=== PATIENT | female | born 1980 | race African-American/Black ===

== ENCOUNTER 2019-12-04 18:25 | Emergency (ER) | payer OTHER ==
[2019-12-04 18:43] VITALS: BMI 33.0
[2019-12-04] MEDS ORDERED: IBUPROFEN 600 MG TABLET (FP) PO ONE ×2 (19:25→19:26)
--- NOTE | 2019-12-04 19:28 | PDOC ---
Documentation entered by Paty Crespo SCRIBE, acting as scribe for Cherrie Hernandes MD. Cherrie Hernandes MD: This documentation has been prepared by the Zak tran Nirvannie, SCRIBE, under my direction and personally reviewed by me in its entirety. I confirm that the documentation accurately reflects all work, treatment, procedures, and medical decision making performed by me. History of Present Illness - General Chief Complaint: Respiratory Stated Complaint: COUGH History Source: Patient Exam Limitations: No Limitations - History of Present Illness Initial Comments: 12/04/19 19:32 HPI: The patient is a 39 year old female, with no significant past medical history, who presents to the emergency department with 1.5 days subjective fevers, chills , congestion, headache, diffuse body aches, and cough. As per patient, her symptoms onset last night thus, was evaluated by her PCP earlier today and diagnosed with the flu and prescribed Tamiflu. Patient notes elevated blood pressure to the 150s and notes her PCP did not prescribe her anything for her fevers, prompting her arrival to the ED. She denies recent nausea, vomit, diarrhea or constipation. She denies recent dysuria, frequency, urgency or hematuria. She denies recent chest pain or shortness of breath. PAST MEDICAL HISTORY: no significant history PAST SURGICAL HISTORY: no significant history FAMILY HISTORY: no pertinent history SOCIAL HISTORY: Pt lives with family and is employed. MEDICATIONS: reviewed ALLERGIES: As per nursing notes ROS: General: +fevers +chills, +Generalized weakness, no weight loss HEENT: No change in vision. No sore throat. No ear pain CardioVascular: No chest pain or shortness of breath Respiratory: +Cough. No wheezing. Gastrointestinal: no nausea, vomiting, diarrhea or constipation, No rectal bleeding Genitourinary: No dysuria, hematuria, or frequency Musculoskeletal: No joint or muscle pain or swelling Neurologic: +Headache. No vertigo, dizziness or loss of consciousness Psychiatric: nor depression Skin: No rashes or easy bruising Endocrine: no increased thirst or abnormal weight change Allergic: no skin or latex allergy All other systems reviewed and normal Physical Exam: General: Well-nourished well-developed individual, no acute distress HEENT: Throat: Normal, tonsils normal, no erythema or exudate Neck: Supple, no meningeal signs, no lymphadenopathy Eyes::Pupils equal reactive and round, extraocular motion intact Chest: Nontender to palpation Cardiac: S1-S2 normal, regular rate and rhythm, no murmurs rubs or gallops Respiratory: Lungs clear to auscultation bilateral Extremities: Warm, dry, no cyanosis, clubbing, or edema Skin: No rashes Neuro: Alert and oriented x3, nonfocal exam, grossly intact, normal gait Psych: Normal mood and affect 12/04/19 19:36 Assessment and plan: This is a 39-year-old female who comes in with influenza symptoms. Patient was started on Tamiflu by her PMD and is not any better so came for reevaluation because she did not get any Tylenol or Motrin. Patient given Motrin here in the ED and discharged told to follow-up with her primary care and alternate Tylenol with Motrin as needed for her symptoms. Past History - Past Medical History Allergies/Adverse Reactions: Allergies Allergy/AdvReac Type Severity Reaction Status Date / Time No Known Allergies Allergy Verified 12/04/19 18:28 Home Medications: Ambulatory Orders Albuterol Sulfate Inhaler - [Ventolin Hfa Inhaler -] 1 - 2 inh PO QID PRN Amlodipine Besylate 5 mg PO DAILY 12/04/19 Cetirizine HCl 10 mg PO DAILY 12/04/19 Fluticasone Prop 0.05% Nasal [Flonase -] 1 spray IH DAILY 12/04/19 Oseltamivir Phosphate [Tamiflu] 75 mg PO DAILY 12/04/19 Asthma: Yes - Surgical History Cholecystectomy: Yes - Psycho Social/Smoking Cessation Hx Smoking Status: Yes Smoking History: Never smoked Have you smoked in the past 12 months: No Number of Cigarettes Smoked Daily: 1 Information on smoking cessation initiated: No Hx Alcohol Use: No *Physical Exam - Vital Signs Last Vital Signs Temp Pulse Resp BP Pulse Ox 102.8 F H 111 H 20 148/99 97 12/04/19 18:25 12/04/19 18:25 12/04/19 18:25 12/04/19 18:25 12/04/19 18:25 Discharge - Discharge Information Problems reviewed: Yes Clinical Impression/Diagnosis: Influenza Condition: Stable Disposition: HOME - Admission No - Follow up/Referral Referrals: Praful Bernabe MD [Primary Care Provider] - - Patient Discharge Instructions Additional Instructions: You have influenza take your Tamiflu as prescribed. Alternate acetaminophen with ibuprofen every 4 hours as needed for fevers. Both of these medications are [id number] shrimp picker a bottle of each on your way home today. Return to the emergency department immediately with ANY new, persistent or worsening symptoms. Continue any medications as previously prescribed by your physician. You should follow up with your primary doctor as soon as possible regarding today's emergency department visit. . Please make sure your doctor reviews the results of your emergency evaluation. Thank you for coming to the Emergency Department today for your care. It was a pleasure to see you today. Please note that your evaluation is INCOMPLETE until you follow-up with your doctor. - Post Discharge Activity Work/Back to School Note: Back to Work
[2019-12-04 19:35] VITALS: BP 132/94; PULSE 91; TEMP 101
== END 2019-12-04 19:35 | disposition home or self-care (01) ==
LOC: FER 18:25
DX: J11.1 Influenza due to unidentified influenza virus with other respiratory manifestations (principal)
CPT/HCPCS: 99282-25

== ENCOUNTER 2020-04-23 08:11 | Emergency (ER) | payer OTHER ==
[2020-04-23 08:17] VITALS: BP 123/7; PULSE 81; TEMP 97.8; BMI 31.9
[2020-04-23] MEDS ORDERED: KETOROLAC TROMETHAMINE 60 MG/2 ML VIAL IM ONE (08:19)
--- NOTE | 2020-04-23 08:19 | PDOC ---
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
[2020-04-23] MEDS ORDERED: KETOROLAC TROMETHAMINE 60 MG/2 ML VIAL ONE (08:37)
[2020-04-23] MEDS ORDERED: CYCLOBENZAPRINE HCL 10 MG TABLET (FP) PO ONE (08:39)
[2020-04-23] MEDS ORDERED: CYCLOBENZAPRINE HCL 10 MG TABLET (FP) ONE (08:40)
--- NOTE | 2020-04-23 08:48 | PDOC ---
History of Present Illness - General Chief Complaint: Injury Stated Complaint: LT HIP/LEG PAIN Time Seen by Provider: 04/23/20 08:14 History Source: Patient Exam Limitations: No Limitations - History of Present Illness Initial Comments: 04/23/20 08:42 Patient is a 40-year-old female with medical history of asthma who presents to the ED with complaint of left buttock and left posterior thigh pain after she slipped and "ended up in a split" from her slip. She states she was walking backward while wearing slippers, lost her footing and slipped. She had immediate pain in the posterior aspect of her thigh and her buttocks on the left. She states she feels as if she has a "charley horse". She has not taken anything for symptoms. The patient is not driving. She states it hurts to walk, sit or move in any direction. Past History - Medical History Allergies/Adverse Reactions: Allergies Allergy/AdvReac Type Severity Reaction Status Date / Time No Known Allergies Allergy Verified 12/04/19 18:28 Home Medications: Ambulatory Orders Albuterol Sulfate Inhaler - [Ventolin Hfa Inhaler -] 1 - 2 inh PO QID PRN 12/04/19 Amlodipine Besylate 5 mg PO DAILY 12/04/19 Cetirizine HCl 10 mg PO DAILY 12/04/19 Fluticasone Prop 0.05% Nasal [Flonase -] 1 spray IH DAILY 12/04/19 Oseltamivir Phosphate [Tamiflu] 75 mg PO DAILY 12/04/19 Cyclobenzaprine HCl [Flexeril 10 mg] 10 mg PO BID PRN #20 tablet 04/23/20 Ibuprofen [Motrin -] 600 mg PO TID PRN #21 tablet 04/23/20 Asthma: Yes COPD: No - Surgical History Cholecystectomy: Yes - Psycho-Social/Smoking History Smoking Status: Yes Smoking History: Never smoked Have you smoked in the past 12 months: No Number of Cigarettes Smoked Daily: 1 Information on smoking cessation initiated: No - Substance Abuse Hx (Audit-C & DAST Scrn) How often the patient has a drink containing alcohol: Never Score: In Men: 4 or > Positive; In Women: 3 or > Positive: 0 Screen Result (Pos requires Nsg. Audit-10AR): Negative In the last yr the pt used illegal drug/Rx for NonMed reason: No Score: Yes response is considered Positive: 0 Screen Result (Positive result requires Nsg. DAST-10): Negative Review of Systems - Review of Systems Comments:: 04/23/20 08:43 - Review of Systems Able to Perform ROS?: Yes Constitutional: No: Fever, Chills, Loss of Appetite, Night Sweats, Weakness HEENTM: No: Eye Pain, Vision changes, Ear Pain, Throat Pain, Throat Swelling, Mouth Pain, Difficulty Swallowing Respiratory: No: Cough, Shortness of Breath, Wheezing, Sputum Production Cardiac (ROS): No: Chest Pain, Chest Tightness, Palpitations, Irregular Heart Beat, Edema ABD/GI: No: Nausea, Vomiting, Abdominal Pain, Diarrhea : No Dysuria, No Hematuria, No Frequency, No Urgency, No Vaginal Discharge/Pain Musculoskeletal: No: Back Pain, Joint Pain, Muscle Weakness, Neck Pain; positive: Left buttock and posterior thigh pain Integumentary: No: Lesions, Rash Neurological: No: Headache, Numbness, Tingling, Weakness, Speech Difficulties *Physical Exam - Vital Signs Last Vital Signs Temp Pulse Resp BP Pulse Ox 97.8 F 81 17 123/7 L 100 04/23/20 08:15 04/23/20 08:15 04/23/20 08:15 04/23/20 08:15 04/23/20 08:15 - Physical Exam 04/23/20 08:43 - Physical Exam General Appearance: Nourished, Appropriately Dressed, No Distress HEENT: EOMI, Normal Voice, Hearing Grossly Normal Neck: Supple, No Lymphadenopathy (R), No Lymphadenopathy (L), No Rigidity, No Decreased range of motion Respiratory/Chest: Lungs Clear, Normal Breath Sounds. No Respiratory Distress, No Accessory Muscle Use Cardiovascular: Regular Rhythm, Regular Rate, S1, S2 Gastrointestinal/Abdominal: Normal Bowel Sounds, Soft. Non-tender, No Guarding, No Rebound, No Rigidity Musculoskeletal: Normal Inspection. Significant tenderness to palpation over the left buttock and left posterior, medial thigh. Pain exacerbated with external rotation of the hip. Normal hip range of motion with internal and external rotation. No hip tenderness to palpation. No pelvic tenderness to palpation. Injury consistent with sciatica. Extremity: Normal Capillary Refill, Normal Inspection Integumentary: Normal Color, Dry. No Rash Neurologic: water pollution control technician II-XII NML intact, Fully Oriented, Alert, Normal Mood/Affect, Normal Response Medical Decision Making - Medical Decision Making 04/23/20 08:44 Assessment: Patient is a 40-year-old female with sciatica on the left side after a slip and fall. Plan: -X-rays ordered from triage, will review -Toradol IM -Flexeril p.o. -Will reassess 04/23/20 09:31 Lesion involving the left femoral intertrochanteric area appreciated on x-ray. This was also read by the radiologist as such. The patient has been made aware that she has this lesion and it must be followed up with orthopedics. She also has been made aware that there is no underlying fractures appreciated. She will get referral to orthopedics and a prescription for Motrin and Flexeril will be sent to her pharmacy. She understands and agrees with this treatment plan and the patient stable for discharge. Discharge - Discharge Information Problems reviewed: Yes Clinical Impression/Diagnosis: Leg pain, Sciatica, left side Condition: Stable Disposition: HOME - Additional Discharge Information Prescriptions: Cyclobenzaprine HCl [Flexeril 10 mg] 10 mg PO BID PRN #20 tablet PRN Reason: Muscle Spasms Ibuprofen [Motrin -] 600 mg PO TID PRN #21 tablet PRN Reason: Pain - Follow up/Referral Referrals: Praful Bernabe MD [Primary Care Provider] - 24 hours Michael Ruiz DO [Staff Physician] - 3 days - Patient Discharge Instructions Patient Printed Discharge Instructions: DI for Sciatica Additional Instructions: Do gentle stretching exercises several times daily to help keep the muscles warm. Take the medications as prescribed but only as needed for pain or muscle spasm. Follow-up with orthopedic surgery for further evaluation and treatment of the left hip cyst that we discussed during your visit in the emergency department. Return for any numbness, tingling, worsening pain, inability to walk or any other worsening symptoms. - Post Discharge Activity
== END 2020-04-23 09:41 | disposition home or self-care (01) ==
LOC: JERFT 08:11
PROC: 3E023GC Introduction of Other Therapeutic Substance into Muscle, Percutaneous Approach (ICD-10-PCS; principal; 2020-04-23)
DX: M54.32 Sciatica, left side (principal)
CPT/HCPCS: 73523-TC-FY; 96372; 99284-25

== ENCOUNTER 2022-12-10 15:31 | Day surgery (SDC) | payer OTHER ==
[2022-12-10] MEDS ORDERED: IRON SUCROSE INJECTION 200 MG in SODIUM CHLORIDE 100 ML IVPB ONE (16:00)
[2022-12-10 17:32] VITALS: BP 134/88; PULSE 73; RESP 18; TEMP 98.3
== END 2022-12-10 17:35 | disposition home or self-care (01) ==
LOC: FINFUSION 15:31 → FM/S 15:33 → FINFUSION 17:35
PROVIDERS: ATTEND Family Medicine
PROC: 3E033GC Introduction of Other Therapeutic Substance into Peripheral Vein, Percutaneous Approach (ICD-10-PCS; principal; 2022-12-10)
DX: D50.9 Iron deficiency anemia, unspecified (principal)
CPT/HCPCS: 96365; J1756